=== PATIENT | female | born 1930 | race Caucasian/White ===

== ENCOUNTER 2016-05-29 12:56 | Observation (INO) | payer MEDICARE, OTHER ==
--- NOTE | ~2016-05-29 | HP ---
History And Physical [facility] [place] [address] [facility] [place]. [address] NAME: CRESENCIO THORNTON : 28 STATUS : ADM Vlad PAT#: [id number] AGE: 86 ADM/REG DATE : 05/29/16 MR#: [id number] REPORT SERV DATE: 05/29/16 DICTATED BY: DELMER FERGUSON DATE: 05/29/16 REPORT STATUS : Draft TRANSCRIBED BY: MODL DATE: 05/29/16 DATE OF ADMISSION: 05/29/2016 REASON FOR ADMISSION: Nausea, vomiting, and diarrhea. Primary care doctor is unclear. The patient is from a facility. HISTORY OF PRESENT ILLNESS: This is an 86-year-old female. She suffers from dementia, does not even know the year at baseline. She has a known history of hypertension, possible chronic heart failure, unclear LVEF, apparently takes only Lasix at home, known history of osteoarthritis, has had a left total knee. She has also had unclear back surgery, year 1999. She has even had a right wrist ORIF, known history of hyperlipidemia, history of at least two basal cell skin carcinoma resections. The patient comes in with about a two to three day episode of nausea, vomiting, diarrhea, subjective fevers, chills as well as having questionable antibiotic recent use, possible two to three months ago when the patient had suspected pneumonia. The patient is a very poor historian, does not know what year it is at baseline. Does not state that she has any complaints whatsoever despite objective evidence of emesis at the facility, however, she is tender to palpation more in the suprapubic region, may have increased urinary frequency and dysuria. PAST MEDICAL HISTORY: See above. PAST SURGICAL HISTORY: See above. ALLERGIES: CODEINE PRURITUS. HOME MEDICATIONS: See MAR. Continue what is relevant. FAMILY HISTORY: Hypertension at least one parent. SOCIAL HISTORY: Does not drink, do drugs, or smoke cigarettes nor has ever. OBJECTIVE: VITAL SIGNS: The patient has 119/59 blood pressure, 98.1 temp, 89 pulse, 14 respirations, currently is 98%. She had some significant wheezing, is getting DuoNeb, and the patient thereafter is 100% on room air. No more respiratory distress. GENERAL: No acute distress. HEENT: PERRLA. No scleral icterus. CARDIOVASCULAR: Regular rate and rhythm. No murmur except 6 systolic aortic murmur. ABDOMEN: Tenderness to palpation, more in the hypogastric suprapubic region. No peritoneal signs. No rebound tenderness. EXTREMITIES: She has some mild hemosiderosis, more in the distal lower extremities, 1+ trace pitting edema. NEURO: She is A and O x 2/4, it is likely her baseline. GCS of 14. History And Physical [address] [place]. [address] NAME: CRESENCIO THORNTON : 28 STATUS : ADM Vlad PAT#: [id number] AGE: 86 ADM/REG DATE : 05/29/16 MR#: [id number] REPORT SERV DATE: 05/29/16 DICTATED BY: DELMER FERGUSON DATE: 05/29/16 REPORT STATUS : Draft TRANSCRIBED BY: JENNIFFER DATE: 05/29/16 PSYCH: Unable to assess given her neuro status. LABORATORY DATA: White count 8.8, hemoglobin 10.7, and 203,000 platelets. 3.3 potassium, 20 bicarb, 1.7 creatinine , chloride 106, AST over ALT 60 over 41. Chest x-ray is poor film under inspired, possible very mild alveolar infiltration. CT of abdomen and pelvis pending. EKG, I will have be pending. ASSESSMENT/PLAN: 1. Nausea, vomiting, diarrhea, questionable antibiotic usage three months ago. Rule out C. diff. 2. Suprapubic tenderness to palpation. 3. Acute kidney injury. 4. Mild acidosis. PLAN: We will go ahead and admit this patient to observation. CT of abdomen and pelvis to rule out nephrolithiasis and gastroenteritis. Empiric Levaquin Flagyl after patient get the UA and urine culture. The patient also will be given D5 LR at 120 x2 L get a FENa. We will also place the patient on sodium bicarbonate, replace the potassium. Pharmacy needs to do the home MAR. We will continue patient's Risperdal and Norvasc only low-dose. Stool C. diff and stool leukocytes, does not need a full stool culture, Crypto or Giardia as patient does not have diarrhea more than seven days which is the standard of care. See rest of my orders. All questions were answered. It took well over 60 minutes to do. Reference [facility] and [facility]. LILIANT/MODL Delmer Ferguson DO / [id number] CC: Delmer Ferguson DO
--- NOTE | ~2016-05-29 | DS ---
Discharge Summary [facility] [address] [place]. [address] NAME: CRESENCIO THORNTON : 28 STATUS : DIS Vlad PAT#: [id number] AGE: 86 ADM/REG DATE : 05/29/16 MR#: [id number] REPORT SERV DATE: 06/01/16 DICTATED BY: JR. BELTRÁN WILLIAM JOHN DATE: 05/31/16 REPORT STATUS : Draft TRANSCRIBED BY: JENNIFFER DATE: 05/31/16 ADMISSION DATE: 05/29/2016 DISCHARGE DATE: 05/31/2016 DISCHARGE DIAGNOSES: Include: 1. Gram-negative johanna urinary tract infection. 2. Intractable nausea and vomiting. 3. Diarrhea. 4. Acute kidney injury on chronic kidney disease, stage III. 5. Dementia. 6. Hypophosphatemia. 7. Hypoalbuminemia. OPERATIONS/PROCEDURES AND TREATMENTS: 1. Urine culture, which has gram-negative rods without identification or sensitivities at this point. 2. Portable chest x-ray done 05/29/2016 which showed no acute process. 3. CT of the abdomen and pelvis done 05/30/2016 which showed no bowel obstruction, bowel wall inflammation. There was a distended gallbladder without evidence of stones or ductal dilatation. There was moderate atrophy of both kidneys and atrophy with replacement of fat in the kidneys. DISCHARGE MEDICATIONS: 1. Norvasc 5 mg orally daily. 2. Risperdal 0.25 mg orally twice a day. 3. Advair Diskus 250/50 one puff twice a day. 4. Lasix 20 mg orally daily. 5. Cozaar 100 mg orally daily. 6. Mevacor 40 mg orally daily. 7. Albuterol metered-dose inhaler two puffs every six hours. 8. Levaquin 750 mg orally daily for three additional days. HOSPITAL COURSE: The patient was an 86-year-old white female with dementia who presented to the emergency room 05/29/2016 with complaint of nausea, vomiting, and diarrhea. The episode began two to three days prior with nausea, vomiting, diarrhea, subjective fever with chills. They were unsure whether she had been on antibiotics recently. Initial exam showed a temperature of 98.1, blood pressure 119/59, heart rate 89, respiratory rate of 14. Exam was remarkable for tenderness to palpation in the hypogastric and suprapubic region and trace edema as well as generalized weakness, otherwise unremarkable. CT of the abdomen and chest x-ray are detailed above. The patient is admitted to the hospital for nausea, vomiting, and abdominal pain. She had a routine urinalysis which showed evidence of a urinary tract infection. The patient was placed on Levaquin 750 mg and a urine culture was obtained. At the point of discharge, the patient's urine culture showed only gram-negative rods without definite ID or sensitivity. However, the patient clinically has responded appropriately, and the nausea, vomiting, and Discharge Summary [facility] [address] [facility] [place]. [address] NAME: CRESENCIO THORNTON : 28 STATUS : DIS Vlad PAT#: [id number] AGE: 86 ADM/REG DATE : 05/29/16 MR#: [id number] REPORT SERV DATE: 06/01/16 DICTATED BY: JR. BELTRÁN WILLIAM JOHN DATE: 05/31/16 REPORT STATUS : Draft TRANSCRIBED BY: JENNIFFER DATE: 05/31/16 diarrhea have all resolved. The patient is back to her baseline functional status. She wants to go home. She is tolerating diet. Her family agrees with this plan. As to the patient's diarrhea, the plan was to collect the C difficile. However, she had no additional liquid bowel movements during the hospital, so this was never collected. As to her kidney disease, baseline kidney function was not available through the [facility] records. I did send for these records and it appears her baseline creatinine is between 1.1 and 1.5. At discharge, her BUN is 20 and creatinine is 1.3, baseline. The patient also had hypophosphatemia, which was corrected. The patient will be discharged home today 05/31/2016 to follow up with Dr. Maximus Gray in one to two weeks. FOLLOWUP ISSUES: Recommend followup on the urine culture to ensure sensitivity. DISCHARGE DIET: Regular. ACTIVITY: As tolerated. For discharge exam and laboratory, please see daily progress note. This discharge took 35 minutes for patient encounter, coordination of care, and documentation. LYNN/JENNIFFER Kaz Beltrán Jr, MD / [id number] CC: Kaz Beltrán Jr, MD Chris Horton, M.D.
[~2016-05-29 12:56] MED LIST: ARICEPT5 PO; BACDS PO; COZAAR100 MG PO; DURICEF PO; HYZAAR 100/25 T1 TAB PO; L20 PO; LORTAB 5 PO; MEVACOR40 MG PO; REST15 PO
[2016-05-29 15:09] LABS: BASOPHILS 0.1 %; BASOPHILS ABSOLUTE 0.01 10/3/uL (0.0-0.16); EOSINOPHILS 0.1 %; EOSINOPHILS ABSOLUTE 0.01 10/3/uL (0.0-0.53); ER CBC TAT 0 Hrs 07 Mins; HEMOGLOBIN 10.7 g/dL (12.0-16.0); IMMATURE GRANULOCYTES 0.2 %; IMMATURE GRANULOCYTES ABSOLUTE 0.02 10/3/uL (0.0-0.11); LYMPHOCYTES 15.1 %; LYMPHOCYTES ABSOLUTE 1.32 10/3/uL (0.67-4.30); MEAN CORPUS HGB CONC 32.9 g/dL (32.0-36.0); MEAN PLATELET VOLUME 9.6 fL (9.2-13.0); MONOCYTES 7.5 %; MONOCYTES ABSOLUTE 0.66 10/3/uL (0.21-1.20); NEUTROPHILS ABSOLUTE 6.74 10/3/uL (2.02-8.40); PLATELET COUNT 203 10/3/uL (150-400); RED CELL COUNT 3.45 10/6/uL (4.0-5.6); WHITE BLOOD CELLS 8.8 10/3/uL (4.5-10.5)
[2016-05-29 15:14] LABS: HEMATOCRIT 32.5 % (36.0-48.0); MANUAL DIFF NO %; MEAN CORPUSCULAR VOLUME 94.2 fL (80-100); RBC DISTRIBUTION WIDTH 13.3 % (12.0-16.0)
[2016-05-29 15:20] LABS: ALBUMIN 3.2 G/DL (3.5-5.0); CALCIUM, SERUM 7.9 MG/DL (8.5-10.4); CHLORIDE, SERUM 106 MMOL/L (96-112); CO2 (CARBON DIOXIDE) 22 MMOL/L (24-34); GFR AFRICAN AMERICAN 31 ML/MIN (>=60); GFR NON AFRICAN AMERICAN 27 ML/MIN (>=60); GLUCOSE, SERUM 98 MG/DL (60-99); POTASSIUM, SERUM 3.3 MMOL/L (3.5-5.3); SGOT(AST) 63 U/L (5-40); SGPT(ALT) 41 U/L (5-65); SODIUM, SERUM 138 MMOL/L (135-148); TOTAL BILIRUBIN 0.4 MG/DL (0-1.2); TOTAL PROTEIN 6.8 G/DL (6.0-8.5)
[2016-05-29 15:21] LABS: A/G RATIO 0.9 (0.7-1.9); ALKALINE PHOSPHATASE 82 U/L (45-117); BUN (BLOOD UREA NITROGEN) 30 MG/DL (6-23); GLOBULIN 3.6 G/DL (2.5-4.1)
[2016-05-29] MEDS ORDERED: ADVAIR250 INH (15:57)
[2016-05-29] MEDS ORDERED: COZAAR100 MG PO (15:58)
[2016-05-29] MEDS ORDERED: NORV5 PO (15:58)
[2016-05-29] MEDS ORDERED: L20 PO (15:58)
[2016-05-29] MEDS ORDERED: RISPERDAL0.25 MG PO (15:59)
[2016-05-29] MEDS ORDERED: MEVACOR40 MG PO (15:59)
[2016-05-29] MEDS ORDERED: PROAIR HFA INH (15:59)
[2016-05-29] MEDS ORDERED: EXELON1.5 PO (16:00)
[2016-05-30 01:40] LABS: ASCORBIC ACID (UR NOT ORDER) 20 (NEG); BILIRUBIN, URINE NEGATIVE (NEG); KETONE, URINE NEGATIVE (NEG); LEUKOCYTE ESTERASE(NOT OR LARGE (NEG)
[2016-05-30 01:44] LABS: WBC (NOT ORDERED) (RFLEX) > 182 (0-5)
[2016-05-30 05:17] LABS: BASOPHILS 0.2 %; BASOPHILS ABSOLUTE 0.01 10/3/uL (0.0-0.16); EOSINOPHILS 1.8 %; EOSINOPHILS ABSOLUTE 0.09 10/3/uL (0.0-0.53); IMMATURE GRANULOCYTES 0.2 %; IMMATURE GRANULOCYTES ABSOLUTE 0.01 10/3/uL (0.0-0.11); LYMPHOCYTES ABSOLUTE 0.88 10/3/uL (0.67-4.30); MEAN CORPUS HGB CONC 33.3 g/dL (32.0-36.0); MEAN CORPUSCULAR HEMOGLOB 31.4 pg (26.0-34.0); MEAN CORPUSCULAR VOLUME 94.3 fL (80-100); MEAN PLATELET VOLUME 9.5 fL (9.2-13.0); MONOCYTES 10.9 %; MONOCYTES ABSOLUTE 0.53 10/3/uL (0.21-1.20); NEUTROPHILS 68.9 %; NEUTROPHILS ABSOLUTE 3.36 10/3/uL (2.02-8.40); PLATELET COUNT 185 10/3/uL (150-400); RED CELL COUNT 3.18 10/6/uL (4.0-5.6)
[2016-05-30 05:18] LABS: MANUAL DIFF NO %; WHITE BLOOD CELLS 4.9 10/3/uL (4.5-10.5)
[2016-05-30 05:41] LABS: BUN (BLOOD UREA NITROGEN) 28 MG/DL (6-23); CALCIUM, SERUM 7.7 MG/DL (8.5-10.4); CHLORIDE, SERUM 112 MMOL/L (96-112); CO2 (CARBON DIOXIDE) 21 MMOL/L (24-34); CREATININE 1.48 MG/DL (0.55-1.02); GFR AFRICAN AMERICAN 37 ML/MIN (>=60); GFR NON AFRICAN AMERICAN 32 ML/MIN (>=60); GLUCOSE, SERUM 107 MG/DL (60-99); PHOSPHORUS, SERUM 2.1 MG/DL (2.5-4.5); POTASSIUM, SERUM 3.8 MMOL/L (3.5-5.3); SGOT(AST) 42 U/L (5-40); SGPT(ALT) 33 U/L (5-65); SODIUM, SERUM 142 MMOL/L (135-148); TOTAL BILIRUBIN 0.2 MG/DL (0-1.2); TROPONIN I 0.04 NG/ML (<0.05)
[2016-05-30 05:46] LABS: A/G RATIO 0.9 (0.7-1.9); ALBUMIN 2.5 G/DL (3.5-5.0); ALKALINE PHOSPHATASE 62 U/L (45-117); GLOBULIN 2.9 G/DL (2.5-4.1); TOTAL PROTEIN 5.4 G/DL (6.0-8.5)
[2016-05-30 06:13] LABS: PROCALCITONIN 0.22 ng/mL (<0.5)
[2016-05-30 06:32] LABS: B NATRIURETIC PEPTIDE (BNP) 98.7 PG/ML (< 100.0)
[2016-05-30 07:30] LABS: GLYCOHEMOGLOBIN (HbA1c) 5.6 % (4.7-6.1)
[2016-05-31 05:20] LABS: BASOPHILS 0.8 %; BASOPHILS ABSOLUTE 0.03 10/3/uL (0.0-0.16); EOSINOPHILS 2.6 %; HEMATOCRIT 27.7 % (36.0-48.0); HEMOGLOBIN 9.1 g/dL (12.0-16.0); IMMATURE GRANULOCYTES 0.3 %; IMMATURE GRANULOCYTES ABSOLUTE 0.01 10/3/uL (0.0-0.11); LYMPHOCYTES 39.1 %; LYMPHOCYTES ABSOLUTE 1.49 10/3/uL (0.67-4.30); MEAN CORPUS HGB CONC 32.9 g/dL (32.0-36.0); MEAN CORPUSCULAR VOLUME 94.2 fL (80-100); MEAN PLATELET VOLUME 9.4 fL (9.2-13.0); MONOCYTES 12.1 %; MONOCYTES ABSOLUTE 0.46 10/3/uL (0.21-1.20); NEUTROPHILS 45.1 %; NEUTROPHILS ABSOLUTE 1.72 10/3/uL (2.02-8.40); PLATELET COUNT 181 10/3/uL (150-400); RBC DISTRIBUTION WIDTH 12.9 % (12.0-16.0); RED CELL COUNT 2.94 10/6/uL (4.0-5.6); WHITE BLOOD CELLS 3.8 10/3/uL (4.5-10.5)
[2016-05-31 05:21] LABS: MANUAL DIFF NO %
[2016-05-31 05:39] LABS: CALCIUM, SERUM 7.4 MG/DL (8.5-10.4); CHLORIDE, SERUM 114 MMOL/L (96-112); CO2 (CARBON DIOXIDE) 22 MMOL/L (24-34); CREATININE 1.26 MG/DL (0.55-1.02); GFR AFRICAN AMERICAN 44 ML/MIN (>=60); GFR NON AFRICAN AMERICAN 38 ML/MIN (>=60); GLUCOSE, SERUM 88 MG/DL (60-99); POTASSIUM, SERUM 3.7 MMOL/L (3.5-5.3); SODIUM, SERUM 145 MMOL/L (135-148)
[2016-05-31 05:42] LABS: BUN (BLOOD UREA NITROGEN) 20 MG/DL (6-23); PHOSPHORUS, SERUM 2.9 MG/DL (2.5-4.5)
[2016-05-31] MEDS ORDERED: LEVAQUIN750 MG PO (10:40)
== END 2016-05-31 13:00 | disposition home or self-care (01) ==
LOC: ER 12:56 → CDU1 16:29 → CDU2 16:55
PROVIDERS: Emergency Medicine; Internal Medicine
DX: N39.0 Urinary tract infection, site not specified (principal); B96.89 Other specified bacterial agents as the cause of diseases classified elsewhere; E83.39 Other disorders of phosphorus metabolism; E88.09 Other disorders of plasma-protein metabolism, not elsewhere classified; I12.9 Hypertensive chronic kidney disease with stage 1 through stage 4 chronic kidney disease, or unspecified chronic kidney disease; N18.3 Chronic kidney disease, stage 3 (moderate); F03.90 Unspecified dementia, unspecified severity, without behavioral disturbance, psychotic disturbance, mood disturbance, and anxiety; E87.2 Acidosis; N17.9 Acute kidney failure, unspecified; M19.90 Unspecified osteoarthritis, unspecified site; E78.5 Hyperlipidemia, unspecified; Z98.890 Other specified postprocedural states; Z88.5 Allergy status to narcotic agent; Z79.899 Other long term (current) drug therapy
CPT/HCPCS: 71010; 74176; 80048; 80053; 81001; 82150; 82962; 83036; 83690; 83735; 83880; 84100; 84145; 84443; 84484; 85025; 87077; 87086; 87186; 87493; 87493-59; 93005; 94640; 96365; 96366; 96372; 96374; 96375; 97161-GP; 99285; A9270-GY; G0378; G8978-CJ-GP; G8979-CI-GP; J1956; J2405